=== PATIENT | female | born 1975 | race African-American/Black ===

== ENCOUNTER 2017-12-19 01:14 | Emergency (ER) | payer MEDICAID, OTHER ==
[~2017-12-19] VITALS: Ht 167.6 cm; Wt 78.0 kg
[2017-12-19] MEDS ORDERED: TETANUS, DIPHTHERIA, PERTUSSIS VAC/PF 0.5ML (>7YR OLD) IM ONE (07:00)
[2017-12-19] MEDS ORDERED: SILVER SULFADIAZINE 1% CREAM 25GM TOP ONE (07:00)
[2017-12-19] MEDS ORDERED: IBUPROFEN 600MG TABLET PO ONE (07:15)
[2017-12-19 08:04] VITALS: BP 112/61
== END 2017-12-19 08:06 | disposition home or self-care (01) ==
LOC: ER 01:14
DX: T23.001A Burn of unspecified degree of right hand, unspecified site, initial encounter (principal); F17.200 Nicotine dependence, unspecified, uncomplicated; F12.10 Cannabis abuse, uncomplicated; X11.8XXA Contact with other hot tap-water, initial encounter; Y93.89 Activity, other specified; Y92.89 Other specified places as the place of occurrence of the external cause; Y99.8 Other external cause status; Z98.890 Other specified postprocedural states; Z88.1 Allergy status to other antibiotic agents
CPT/HCPCS: 16000; 81025; 90471; 90715; 99284